=== PATIENT | female | born 1960 | race Caucasian/White ===

== ENCOUNTER 2016-11-10 05:21 | Emergency (ER) | payer OTHER, MEDICAID ==
[~2016-11-10] VITALS: Ht 172.7 cm; Wt 93.0 kg
[~2016-11-10 05:21] MED LIST: BUSP15TA3 PO; GABA-531 PO; INSU100V3; QUET50TA11 PO; TRAZ-132 PO; VENL150C2 PO
[2016-11-10] MEDS ORDERED: ACETAMINOPHEN 325MG TABLET PO STA (06:39)
[2016-11-10] MEDS ORDERED: SODIUM CHLORIDE 0.9% 1,000 ML IV ONE (06:39)
[2016-11-10] MEDS ORDERED: ONDANSETRON HCL 4MG/2ML VIAL IV ONE (06:45)
[2016-11-10 07:44] LABS: BASOPHILS % 0.2 % (0.0-2.0); HEMATOCRIT. 35.6 % (36.0-48.0); HEMOGLOBIN. 11.9 g/dL (12.0-16.0); LYMPHOCYTES % 8.3 % (20.0-50.0); MEAN CORPUSCULAR HEMOGLOBIN 29.4 pg (28.0-32.0); MEAN CORPUSCULAR VOLUME 88.1 fL (81.0-99.0); MEAN PLATELET VOLUME 9.2 fl (7.4-10.4); MONOCYTES % 6.8 % (2.0-8.0); NEUTROPHILS % 84.7 % (40.0-76.0); PLATELET 64 x1000/uL (130-400); RED BLOOD CELL COUNT 4.04 mill/uL (4.2-5.4); RED CELL DISTRIBUTION WIDTH 16.8 % (11.6-14.6)
[2016-11-10 07:45] LABS: CHLORIDE 102 mEq/L (98-107)
[2016-11-10 07:55] LABS: CARBON DIOXIDE 24 mEq/L (21-32)
[2016-11-10 08:49] LABS: GLUCOSE URINE 1+ (NEGATIVE); KETONES URINE TRACE (NEGATIVE); LEUKOCYTE ESTERASE URINE 3+ (NEGATIVE); NITRITE URINE POSITIVE (NEGATIVE); OCCULT BLOOD URINE 1+ (NEGATIVE); PH URINE 7.5 (4.5-8.0); PROTEIN URINE 1+ (NEGATIVE); SPECIFIC GRAVITY URINE 1.018 (1.005-1.030); UROBILINOGEN URINE >=8.0 E.U./dL (0.2-1.0)
[2016-11-10 08:53] LABS: CLARITY URINE CLOUDY (CLEAR); COLOR URINE YELLOW (YELLOW)
[2016-11-10] MEDS ORDERED: CEFTRIAXONE 1 G PREMIX 50 ML IV ONE (09:00)
[2016-11-10] MEDS ORDERED: KETOROLAC 30MG/ML VIAL IV ONE (09:45)
[2016-11-10 10:18] VITALS: BP 104/54
== END 2016-11-10 10:39 | disposition home or self-care (01) ==
LOC: ER 05:24
DX: N39.0 Urinary tract infection, site not specified (principal); E11.9 Type 2 diabetes mellitus without complications; F12.10 Cannabis abuse, uncomplicated; Z85.9 Personal history of malignant neoplasm, unspecified; Z90.5 Acquired absence of kidney; Z98.890 Other specified postprocedural states
CPT/HCPCS: 36415; 71010; 80053; 81001; 83605; 85025; 87040; 87077; 87086; 87186; 93005; 96361; 96365; 96375; 99285; J0696; J1885; J2405; J7030

== ENCOUNTER 2016-11-10 20:54 | Inpatient (IN) | payer OTHER, MEDICAID ==
[~2016-11-10] VITALS: Ht 170.2 cm; Wt 92.1 kg
[2016-11-10] MEDS ORDERED: SODIUM CHLORIDE 0.9% 1,000 ML IV ONE (21:33)
[2016-11-10] MEDS ORDERED: GENTAMICIN 80MG PREMIX 100 ML IV ONE (21:45)
[2016-11-10] MEDS ORDERED: PIPERACILLIN/TAZ 3.375G PREMIX 50 ML IV ONE (21:45)
[2016-11-10] MEDS ORDERED: VANCOMYCIN 1 G PREMIX 200 ML IV ONE (21:45)
[2016-11-10] MEDS ORDERED: IPRATROPIUM/ALBUTEROL 0.5-3(2.5)MG/3ML NEB INH PRN (22:15)
[2016-11-10] MEDS ORDERED: MAGNESIUM/ALUMINUM HYDROXIDE/SIMETHICONE 30ML UDC PO PRN (22:15)
[2016-11-10] MEDS ORDERED: DOCUSATE SODIUM 100MG CAPSULE PO PRN (22:15)
[2016-11-10] MEDS ORDERED: CLONIDINE 0.1MG TABLET PO PRN (22:15)
[2016-11-10] MEDS ORDERED: ONDANSETRON HCL 4MG/2ML VIAL IV PRN (22:15)
[2016-11-10] MEDS: ACETAMINOPHEN 325MG TABLET PO PRN (22:26)
[2016-11-10] MEDS: SODIUM CHLORIDE 0.9% 1,000 ML IV SCH (22:26)
[2016-11-10 22:39] LABS: CLARITY URINE TURBID (CLEAR); COLOR URINE DARK YELLOW (YELLOW); GLUCOSE URINE NEGATIVE (NEGATIVE); KETONES URINE NEGATIVE (NEGATIVE); LEUKOCYTE ESTERASE URINE 3+ (NEGATIVE); NITRITE URINE POSITIVE (NEGATIVE); OCCULT BLOOD URINE 2+ (NEGATIVE); PH URINE 5.5 (4.5-8.0); PROTEIN URINE 1+ (NEGATIVE)
[2016-11-10 22:49] LABS: BASOPHILS % 0.2 % (0.0-2.0); EOSINOPHILS % 0.2 % (0.0-5.0); HEMATOCRIT. 33.7 % (36.0-48.0); HEMOGLOBIN. 11.1 g/dL (12.0-16.0); LYMPHOCYTES % 11.7 % (20.0-50.0); MEAN CORPUSCULAR HEMOGLOBIN 29.1 pg (28.0-32.0); MEAN CORPUSCULAR VOLUME 88.4 fL (81.0-99.0); MEAN PLATELET VOLUME 9.2 fl (7.4-10.4); MONOCYTES % 9.1 % (2.0-8.0); NEUTROPHILS % 78.8 % (40.0-76.0); PLATELET 69 x1000/uL (130-400); RED BLOOD CELL COUNT 3.81 mill/uL (4.2-5.4); RED CELL DISTRIBUTION WIDTH 16.8 % (11.6-14.6)
[2016-11-10 22:51] LABS: *AMPHETAMINES SCREEN URINE NEGATIVE (NEGATIVE); *BARBITURATES SCREEN URINE NEGATIVE (NEGATIVE); *BENZODIAZEPINES SCREEN URINE NEGATIVE (NEGATIVE); *COCAINE SCREEN URINE NEGATIVE (NEGATIVE); CANNABINOID URINE SCREEN PRESUMTIVE POSITIVE (NEGATIVE); METHADONE URINE SCREEN NEGATIVE (NEGATIVE); OPIATES URINE SCREEN PRESUMTIVE POSITIVE (NEGATIVE); PHENCYCLIDINE URINE SCREEN NEGATIVE (NEGATIVE)
[2016-11-10 22:55] LABS: INR 1.2; PROTHROMBIN TIME 12.7 sec
[2016-11-10 22:56] LABS: CHLORIDE 104 mEq/L (98-107)
[2016-11-10 22:59] LABS: CARBON DIOXIDE 27 mEq/L (21-32)
[2016-11-10 23:04] LABS: TROPONIN I < 0.02 ng/mL (0.00-0.04)
[2016-11-11] MEDS: MORPHINE SULFATE 4 MG/ML CPJ (NOT FOR IM USE) IV ONE ×2 (00:56→01:17)
[2016-11-11] MEDS: ONDANSETRON HCL 4MG/2ML VIAL IV ONE ×2 (00:56→01:17)
[2016-11-11 01:30] VITALS: BP 149/81
[2016-11-11] MEDS ORDERED: DEXTROSE 50% WATER 50ML SYRINGE IV PRN (02:45)
[2016-11-11 04:00] VITALS: BP 101/63
[2016-11-11] MEDS: ACETAMINOPHEN 325MG TABLET PO PRN ×3 (04:33→21:24)
[2016-11-11 06:00] LABS: BASOPHILS % 0.2 % (0.0-2.0); EOSINOPHILS % 0.2 % (0.0-5.0); HEMATOCRIT. 31.5 % (36.0-48.0); HEMOGLOBIN. 10.5 g/dL (12.0-16.0); LYMPHOCYTES % 7.2 % (20.0-50.0); MEAN CORPUSCULAR HEMOGLOBIN 29.5 pg (28.0-32.0); MEAN CORPUSCULAR VOLUME 88.9 fL (81.0-99.0); MEAN PLATELET VOLUME 9.7 fl (7.4-10.4); MONOCYTES % 7.2 % (2.0-8.0); NEUTROPHILS % 85.2 % (40.0-76.0); PLATELET 58 x1000/uL (130-400); RED BLOOD CELL COUNT 3.54 mill/uL (4.2-5.4); RED CELL DISTRIBUTION WIDTH 16.2 % (11.6-14.6)
[2016-11-11] MEDS: BLOOD SUGAR DIAGNOSTIC STRIP TEST SCH ×4 (06:38→23:21)
[2016-11-11 06:50] LABS: CREATINE KINASE 49 IU/L (26-192); CREATINE KINASE MB FRACTION < 0.5 ng/mL (0.5-3.6); HDL CHOLESTEROL 24 mg/dL (40-59); LDL CHOLESTEROL 60 mg/dL (5-100)
[2016-11-11] MEDS ORDERED: PIPERACILLIN/TAZ 3.375G PREMIX 50 ML IV SCH (07:00)
[2016-11-11 08:00] VITALS: BP 116/74
[2016-11-11] MEDS: GABAPENTIN 300MG CAPSULE PO SCH ×3 (09:05→17:48)
[2016-11-11] MEDS: INSULIN LISPRO 100 UNITS/ML SUBCUT SCH ×4 (09:07→23:19)
[2016-11-11] MEDS: SODIUM CHLORIDE 0.9% 1,000 ML IV SCH ×2 (10:23→23:29)
[2016-11-11 12:00] VITALS: BP 114/76
[2016-11-11 15:16] LABS: CREATINE KINASE MB FRACTION 0.6 ng/mL (0.5-3.6)
[2016-11-11] MEDS: HYDROCODONE/ACETAMINOPHEN 5/325MG TABLET PO PRN ×2 (15:31→23:29)
[2016-11-11 16:00] VITALS: BP 122/78
[2016-11-11] MEDS ORDERED: VANCOMYCIN 1500MG in DEXTROSE 5% WATER 250ML IV SCH (18:00)
[2016-11-11] MEDS: PIPERACILLIN/TAZ 3.375G PREMIX 50 ML IV SCH (19:29)
[2016-11-11 20:00] VITALS: BP 124/69
[2016-11-11] MEDS: VENLAFAXINE HCL 37.5MG SR CAPSULE 24HR PO SCH (21:25)
[2016-11-11] MEDS: KETOROLAC 30MG/ML VIAL IV PRN (23:16)
[2016-11-11] MEDS: TRAZODONE HCL 100MG TABLET PO SCH (23:21)
[2016-11-12] VITALS: BP 94/42
[2016-11-12] MEDS: PIPERACILLIN/TAZ 3.375G PREMIX 50 ML IV SCH ×2 (00:17→06:39)
[2016-11-12 04:00] VITALS: BP 114/65
[2016-11-12] MEDS: BLOOD SUGAR DIAGNOSTIC STRIP TEST SCH ×3 (07:40→17:20)
[2016-11-12] MEDS: GABAPENTIN 300MG CAPSULE PO SCH ×3 (08:32→16:46)
[2016-11-12] MEDS: VENLAFAXINE HCL 37.5MG SR CAPSULE 24HR PO SCH (08:33)
[2016-11-12] MEDS: INSULIN LISPRO 100 UNITS/ML SUBCUT SCH ×3 (08:35→17:56)
[2016-11-12] MEDS: KETOROLAC 30MG/ML VIAL IV PRN ×2 (09:20→20:51)
[2016-11-12 12:00] VITALS: BP 104/50
[2016-11-12] MEDS: SODIUM CHLORIDE 0.9% 1,000 ML IV SCH (12:45)
[2016-11-12] MEDS: CEFAZOLIN 2,000 MG in DEXT 5% WATER 100 ML IV SCH (15:10)
[2016-11-12 15:59] VITALS: BP 123/35
[2016-11-12] MEDS: HYDROCODONE/ACETAMINOPHEN 5/325MG TABLET PO PRN (18:42)
[2016-11-12 20:00] VITALS: BP 136/65
[2016-11-12] MEDS: ACETAMINOPHEN 325MG TABLET PO PRN (20:50)
[2016-11-12] MEDS: TRAZODONE HCL 100MG TABLET PO SCH (20:50)
[2016-11-13] VITALS: BP 118/80
[2016-11-13] MEDS: SODIUM CHLORIDE 0.9% 1,000 ML IV SCH ×2 (00:14→12:08)
[2016-11-13] MEDS: CEFAZOLIN 2,000 MG in DEXT 5% WATER 100 ML IV SCH ×4 (00:23→21:10)
[2016-11-13] MEDS: INSULIN LISPRO 100 UNITS/ML SUBCUT SCH ×5 (00:24→21:54)
[2016-11-13] MEDS: BLOOD SUGAR DIAGNOSTIC STRIP TEST SCH ×5 (00:26→21:10)
[2016-11-13 04:00] VITALS: BP 143/67
[2016-11-13 04:11] LABS: CARBON DIOXIDE 26 mEq/L (21-32); CHLORIDE 107 mEq/L (98-107); VANCOMYCIN TROUGH 11.3 ug/mL (5.0-10.0)
[2016-11-13] MEDS: HYDROCODONE/ACETAMINOPHEN 5/325MG TABLET PO PRN ×2 (06:38→18:08)
[2016-11-13 08:00] VITALS: BP 143/70
[2016-11-13] MEDS: VENLAFAXINE HCL 37.5MG SR CAPSULE 24HR PO SCH (08:18)
[2016-11-13] MEDS: GABAPENTIN 300MG CAPSULE PO SCH ×3 (08:19→17:06)
[2016-11-13] MEDS: KETOROLAC 30MG/ML VIAL IV PRN (08:46)
[2016-11-13] MEDS ORDERED: LIDOCAINE HCL 1% 20ML VIAL (Pyxis) INJ ONE (08:50)
[2016-11-13] MEDS ORDERED: SODIUM BICARBONATE 4% (2.4MEQ) 5ML VIAL IV ONE (08:50)
[2016-11-13 12:00] VITALS: BP 126/66
[2016-11-13 16:00] VITALS: BP 134/80
[2016-11-13 20:00] VITALS: BP 133/64
[2016-11-13] MEDS: TRAZODONE HCL 100MG TABLET PO SCH (21:02)
[2016-11-14] VITALS: BP 132/60
[2016-11-14] MEDS: SODIUM CHLORIDE 0.9% 1,000 ML IV SCH ×2 (01:44→13:35)
[2016-11-14 04:00] VITALS: BP 144/52
[2016-11-14] MEDS: KETOROLAC 30MG/ML VIAL IV PRN (04:20)
[2016-11-14] MEDS: CEFAZOLIN 2,000 MG in DEXT 5% WATER 100 ML IV SCH ×2 (06:10→13:28)
[2016-11-14] MEDS: BLOOD SUGAR DIAGNOSTIC STRIP TEST SCH ×2 (06:12→12:40)
[2016-11-14 08:00] VITALS: BP 149/91
[2016-11-14] MEDS: GABAPENTIN 300MG CAPSULE PO SCH ×2 (08:48→13:30)
[2016-11-14] MEDS: VENLAFAXINE HCL 37.5MG SR CAPSULE 24HR PO SCH (08:48)
[2016-11-14] MEDS: INSULIN LISPRO 100 UNITS/ML SUBCUT SCH ×2 (09:05→13:28)
[2016-11-14 12:00] VITALS: BP 157/87
[2016-11-14 14:47] VITALS: BP 157/87
== END 2016-11-14 14:50 | disposition home health service (06) | DRG 872 ==
LOC: EDBEDREQSVC 21:53 → EDBEDREQ 21:53 → EDBEDREQTM 21:53 → ER 23:16 → ENRESERV 23:57 → 7WST 11-11 01:49
PROVIDERS: ADMIT Internal Medicine; ATTEND Internal Medicine
PROC: 02HV33Z Insertion of Infusion Device into Superior Vena Cava, Percutaneous Approach (ICD-10-PCS; principal; 2016-11-13)
PROC: B5181ZA Fluoroscopy of Superior Vena Cava using Low Osmolar Contrast, Guidance (ICD-10-PCS; 2016-11-13)
PROC: B548ZZA Ultrasonography of Superior Vena Cava, Guidance (ICD-10-PCS; 2016-11-13)
DX: A41.9 Sepsis, unspecified organism (principal); N39.0 Urinary tract infection, site not specified; E87.6 Hypokalemia; D64.9 Anemia, unspecified; B96.20 Unspecified Escherichia coli [E. coli] as the cause of diseases classified elsewhere; E11.9 Type 2 diabetes mellitus without complications; F17.210 Nicotine dependence, cigarettes, uncomplicated; Z60.2 Problems related to living alone; Z82.49 Family history of ischemic heart disease and other diseases of the circulatory system; Z85.528 Personal history of other malignant neoplasm of kidney; Z88.1 Allergy status to other antibiotic agents; Z79.4 Long term (current) use of insulin; Z79.899 Other long term (current) drug therapy; Z98.891 History of uterine scar from previous surgery; Z71.6 Tobacco abuse counseling
CPT/HCPCS: 36415; 36569; 71010; 76937; 77001; 80048; 80053; 80061; 80202; 80305; 81001; 82550; 82553; 82962; 83605; 83735; 84443; 84484; 85025; 85610; 87040; 87086; 93005; 93970; 96365; 96366; 96367; 96375; 99285; 99406; C1725; J0690; J1580; J1815; J1885; J2270; J2405; J2543; J3370; J3490; J7030; J7050; J7060

== ENCOUNTER 2017-03-18 16:00 | Emergency (ER) | payer OTHER, MEDICAID ==
[~2017-03-18] VITALS: Ht 172.7 cm; Wt 91.0 kg
[~2017-03-18 16:00] MED LIST changes: +QUET50TA PO; -QUET50TA11 PO
[2017-03-18 16:19] VITALS: BP 147/74
[2017-03-18] MEDS ORDERED: DEXAMETHASONE 10 MG/ML VIAL IM ONE (18:45)
[2017-03-18] MEDS ORDERED: DIPHENHYDRAMINE 50MG CAPSULE PO ONE (19:30)
== END 2017-03-18 19:55 | disposition home or self-care (01) ==
LOC: ER 16:00
DX: T78.40XA Allergy, unspecified, initial encounter (principal); X58.XXXA Exposure to other specified factors, initial encounter; R03.0 Elevated blood-pressure reading, without diagnosis of hypertension; E11.9 Type 2 diabetes mellitus without complications; Z85.9 Personal history of malignant neoplasm, unspecified; Z98.890 Other specified postprocedural states; Z90.89 Acquired absence of other organs; F17.210 Nicotine dependence, cigarettes, uncomplicated; F12.90 Cannabis use, unspecified, uncomplicated; Z79.4 Long term (current) use of insulin; Z79.899 Other long term (current) drug therapy
CPT/HCPCS: 96372; 99283; J1100; Q0163

== ENCOUNTER 2017-06-17 07:33 | Emergency (ER) | payer OTHER, MEDICAID ==
[~2017-06-17] VITALS: Ht 170.2 cm; Wt 75.0 kg
[2017-06-17 10:40] VITALS: BP 124/60
== END 2017-06-17 13:04 | disposition left against medical advice (07) ==
LOC: ER 07:33
DX: S90.821A Blister (nonthermal), right foot, initial encounter (principal); M79.671 Pain in right foot; E11.9 Type 2 diabetes mellitus without complications; X58.XXXA Exposure to other specified factors, initial encounter; Y93.89 Activity, other specified; Y92.89 Other specified places as the place of occurrence of the external cause
CPT/HCPCS: 82962; 99282

== ENCOUNTER 2018-03-10 14:51 | Emergency (ER) | payer OTHER, MEDICAID ==
[~2018-03-10] VITALS: Ht 170.2 cm; Wt 73.0 kg
[~2018-03-10 14:51] MED LIST changes: -TRAZ-132 PO; +TRAZ-213 PO
[2018-03-10] MEDS ORDERED: KETOROLAC 60MG/2ML VIAL IM STA (16:12)
[2018-03-10] MEDS ORDERED: MELOXICAM 7.5MG TABLET PO ONE (17:30)
[2018-03-10 17:49] VITALS: BP 137/62
== END 2018-03-10 17:48 | disposition home or self-care (01) ==
LOC: ER 14:51
DX: S20.212A Contusion of left front wall of thorax, initial encounter (principal); S20.211A Contusion of right front wall of thorax, initial encounter; F17.200 Nicotine dependence, unspecified, uncomplicated; F12.10 Cannabis abuse, uncomplicated; E11.9 Type 2 diabetes mellitus without complications; X58.XXXA Exposure to other specified factors, initial encounter; Y93.89 Activity, other specified; Y92.89 Other specified places as the place of occurrence of the external cause; Y99.8 Other external cause status; Z90.49 Acquired absence of other specified parts of digestive tract; Z98.890 Other specified postprocedural states; Z79.4 Long term (current) use of insulin; Z79.899 Other long term (current) drug therapy; Z88.1 Allergy status to other antibiotic agents
CPT/HCPCS: 71045; 93005; 96372; 99283; 99406; J1885

== ENCOUNTER 2019-06-01 15:02 | Emergency (ER) | payer OTHER, MEDICAID ==
[~2019-06-01] VITALS: Ht 167.6 cm; Wt 90.0 kg
[~2019-06-01 15:02] MED LIST changes: -TRAZ-213 PO; +TRAZ-252 PO
[2019-06-01 15:12] VITALS: BP 170/60
== END 2019-06-01 19:50 | disposition left against medical advice (07) ==
LOC: ER 15:02
DX: M54.9 Dorsalgia, unspecified (principal); Z53.21 Procedure and treatment not carried out due to patient leaving prior to being seen by health care provider

== ENCOUNTER 2019-09-22 10:58 | Emergency (ER) | payer OTHER, MEDICAID ==
[~2019-09-22] VITALS: Ht 170.2 cm; Wt 70.0 kg
[2019-09-22 11:59] VITALS: BP 130/78
[2019-09-22] MEDS ORDERED: BACITRACIN ZINC OINT UDPKT TOP ONE (12:00)
[2019-09-22 12:45] LABS: BASOPHILS % 0.5 % (0.0-2.0); EOSINOPHILS % 1.8 % (0.0-5.0); HEMOGLOBIN. 11.8 g/dL (12.0-16.0); LYMPHOCYTES % 20.4 % (20.0-50.0); MEAN CORPUSCULAR HEMOGLOBIN 32.4 pg (28.0-32.0); MEAN CORPUSCULAR VOLUME 95.9 fL (81.0-99.0); MEAN PLATELET VOLUME 10.3 fl (7.4-10.4); MONOCYTES % 5.7 % (2.0-8.0); NEUTROPHILS % 71.6 % (40.0-76.0); PLATELET 73 x1000/uL (130-400); RED BLOOD CELL COUNT 3.65 mill/uL (4.2-5.4); RED CELL DISTRIBUTION WIDTH 18.1 % (11.6-14.6)
[2019-09-22 12:48] LABS: CHLORIDE 108 mEq/L (98-107)
== END 2019-09-22 13:54 | disposition home or self-care (01) ==
LOC: ER 10:58
DX: G62.9 Polyneuropathy, unspecified (principal); S90.424A Blister (nonthermal), right lesser toe(s), initial encounter; W26.8XXA Contact with other sharp object(s), not elsewhere classified, initial encounter; Y93.89 Activity, other specified; R03.0 Elevated blood-pressure reading, without diagnosis of hypertension; D61.818 Other pancytopenia; E11.9 Type 2 diabetes mellitus without complications; Y92.89 Other specified places as the place of occurrence of the external cause
CPT/HCPCS: 36415; 80053; 85025; 99283

== ENCOUNTER 2019-10-03 19:02 | Emergency (ER) | payer OTHER, MEDICAID ==
[~2019-10-03] VITALS: Ht 170.2 cm; Wt 77.0 kg
[2019-10-03 19:13] VITALS: BP 130/82
[2019-10-03] MEDS ORDERED: ACETAMINOPHEN 500MG TABLET PO ONE (20:30)
[2019-10-03] MEDS ORDERED: IBUPROFEN 800MG TABLET PO ONE (20:30)
== END 2019-10-03 22:16 | disposition home or self-care (01) ==
LOC: ER 19:02
DX: S93.691A Other sprain of right foot, initial encounter (principal); M79.671 Pain in right foot; X58.XXXA Exposure to other specified factors, initial encounter; Y93.89 Activity, other specified; Y92.89 Other specified places as the place of occurrence of the external cause; Y99.8 Other external cause status; E11.9 Type 2 diabetes mellitus without complications; M77.9 Enthesopathy, unspecified; Z88.1 Allergy status to other antibiotic agents
CPT/HCPCS: 73630; 99283

== ENCOUNTER 2019-10-15 22:14 | Emergency (ER) | payer OTHER, MEDICAID ==
[~2019-10-15] VITALS: Ht 170.2 cm; Wt 77.0 kg
[2019-10-15 22:53] VITALS: BP 102/54
[2019-10-15] MEDS ORDERED: DEXAMETHASONE 4MG TABLET PO ONE (23:45)
== END 2019-10-15 23:44 | disposition home or self-care (01) ==
LOC: ER 22:14
DX: H66.92 Otitis media, unspecified, left ear (principal); J32.9 Chronic sinusitis, unspecified; Z88.1 Allergy status to other antibiotic agents
CPT/HCPCS: 99283; J8540

== ENCOUNTER 2020-01-30 09:24 | Emergency (ER) | payer OTHER, MEDICAID ==
[~2020-01-30] VITALS: Ht 170.2 cm; Wt 68.0 kg
[2020-01-30] MEDS ORDERED: KETOROLAC 30MG/ML VIAL IM ONE (09:45)
[2020-01-30 09:55] VITALS: BP 111/67
== END 2020-01-30 11:23 | disposition home or self-care (01) ==
LOC: ER 09:24
DX: M17.11 Unilateral primary osteoarthritis, right knee (principal); F32.9 Major depressive disorder, single episode, unspecified; E11.9 Type 2 diabetes mellitus without complications; Z98.890 Other specified postprocedural states; Z85.9 Personal history of malignant neoplasm, unspecified; Z79.4 Long term (current) use of insulin; Z79.899 Other long term (current) drug therapy; Z88.1 Allergy status to other antibiotic agents
CPT/HCPCS: 73562; 96372; 99283; J1885

== ENCOUNTER 2021-06-13 17:02 | Emergency (ER) | payer OTHER, MEDICAID ==
[~2021-06-13] VITALS: Ht 165.1 cm; Wt 80.0 kg
[~2021-06-13 17:02] MED LIST changes: -GABA-531 PO; +GABA-532 PO
[2021-06-13] MEDS ORDERED: ONDANSETRON HCL 4MG/2ML INJ IV STA (17:04)
[2021-06-13] MEDS ORDERED: SODIUM CHLORIDE 0.9% 1,000 ML IV ONE (17:15)
[2021-06-13] MEDS ORDERED: ACTIVATED CHARCOAL 50 G/240 ML TUBE PO NR (17:45)
[2021-06-13 18:04] LABS: CLARITY URINE CLEAR (CLEAR); COLOR URINE YELLOW (YELLOW); KETONES URINE NEGATIVE (NEGATIVE); LEUKOCYTE ESTERASE URINE TRACE (NEGATIVE); NITRITE URINE NEGATIVE (NEGATIVE); OCCULT BLOOD URINE NEGATIVE (NEGATIVE); PROTEIN URINE TRACE (NEGATIVE); SPECIFIC GRAVITY URINE 1.013 (1.005-1.030)
[2021-06-13 18:12] LABS: BASOPHILS % 0.4 % (0.0-2.0); EOSINOPHILS % 1.1 % (0.0-5.0); HEMATOCRIT. 34.1 % (36.0-48.0); HEMOGLOBIN. 11.8 g/dL (12.0-16.0); LYMPHOCYTES % 25.3 % (20.0-50.0); MEAN CORPUSCULAR VOLUME 92.7 fL (81.0-99.0); MONOCYTES % 6.5 % (2.0-8.0); NEUTROPHILS % 66.7 % (40.0-76.0); PLATELET 51 x1000/uL (130-400); RED BLOOD CELL COUNT 3.67 mill/uL (4.2-5.4); RED CELL DISTRIBUTION WIDTH 15.2 % (11.6-14.6)
[2021-06-13 18:19] LABS: CHLORIDE 107 mEq/L (98-107)
[2021-06-13 18:22] LABS: HCG SCREEN NEGATIVE
[2021-06-13 18:27] LABS: ETHANOL BLOOD < 10 mg/dL
[2021-06-13 18:29] LABS: *AMPHETAMINES SCREEN URINE NEGATIVE (NEGATIVE); *BARBITURATES SCREEN URINE NEGATIVE (NEGATIVE); *BENZODIAZEPINES SCREEN URINE NEGATIVE (NEGATIVE); *COCAINE SCREEN URINE NEGATIVE (NEGATIVE); METHADONE URINE SCREEN NEGATIVE (NEGATIVE)
[2021-06-13 18:30] LABS: CANNABINOID URINE SCREEN PRESUMTIVE POSITIVE (NEGATIVE); OPIATES URINE SCREEN NEGATIVE (NEGATIVE); PHENCYCLIDINE URINE SCREEN NEGATIVE (NEGATIVE)
[2021-06-13] MEDS ORDERED: POTASSIUM CHLORIDE 20MEQ TABLET SR PO ONE (18:30)
[2021-06-13] MEDS ORDERED: *PATIENT'S OWN MEDICATION STORAGE XX SCH (20:30)
[2021-06-14] MEDS ORDERED: LORAZEPAM 0.5MG TABLET PO ONE (15:45)
[2021-06-14] MEDS ORDERED: LORAZEPAM 2MG/ML CPJ IM ONE (17:45)
[2021-06-15 06:09] LABS: CHLORIDE 109 mEq/L (98-107)
[2021-06-15] MEDS ORDERED: LORAZEPAM 1MG TABLET PO ONE (08:00)
[2021-06-15] MEDS ORDERED: NICOTINE 7MG PATCH TD ONE (10:45)
[2021-06-15] MEDS: BUSPIRONE HCL 5MG TABLET PO SCH ×3 (11:00→23:55)
[2021-06-15] MEDS: VENLAFAXINE HCL 37.5MG SR CAPSULE 24HR PO SCH (11:01)
[2021-06-16] MEDS: BUSPIRONE HCL 5MG TABLET PO SCH ×3 (06:35→22:36)
[2021-06-16] MEDS: VENLAFAXINE HCL 37.5MG SR CAPSULE 24HR PO SCH (06:36)
[2021-06-16] MEDS ORDERED: TRAZODONE HCL 50MG TABLET PO SCH (21:00)
[2021-06-17] MEDS ORDERED: LORAZEPAM 1MG TABLET PO ONE (01:00)
[2021-06-17] MEDS ORDERED: ACETAMINOPHEN WITH CODEINE 300/30MG TABLET PO ONE (01:00)
[2021-06-17] MEDS ORDERED: VENLAFAXINE HCL 37.5MG SR CAPSULE 24HR PO ONE (01:00)
[2021-06-17 06:00] VITALS: BP 135/67
[2021-06-17] MEDS: BUSPIRONE HCL 5MG TABLET PO SCH (06:07)
== END 2021-06-17 07:35 ==
LOC: ER 17:02
DX: T43.212A Poisoning by selective serotonin and norepinephrine reuptake inhibitors, intentional self-harm, initial encounter (principal); F33.9 Major depressive disorder, recurrent, unspecified; F16.10 Hallucinogen abuse, uncomplicated; F12.90 Cannabis use, unspecified, uncomplicated; E87.6 Hypokalemia; D75.839 Thrombocytosis, unspecified; R03.0 Elevated blood-pressure reading, without diagnosis of hypertension; E11.9 Type 2 diabetes mellitus without complications; Z20.822 Contact with and (suspected) exposure to COVID-19; Z63.79 Other stressful life events affecting family and household; Z85.9 Personal history of malignant neoplasm, unspecified; Y92.89 Other specified places as the place of occurrence of the external cause; Z79.4 Long term (current) use of insulin; Z75.1 Person awaiting admission to adequate facility elsewhere
CPT/HCPCS: 36415; 80053; 80305; 80307; 80320; 80329; 81003; 84703; 85025; 93005; 96361; 96374; 99285; J2060; J2405; J7030; U0003; G0480

== ENCOUNTER 2021-11-07 11:28 | Emergency (ER) | payer OTHER, MEDICAID ==
[~2021-11-07] VITALS: Ht 162.6 cm; Wt 73.0 kg
[~2021-11-07 11:28] MED LIST changes: -VENL150C2 PO; +VENL150C4 PO
[2021-11-07] MEDS ORDERED: LEVETIRACETAM 500MG PREMIX 100 ML IV ONE (11:45)
[2021-11-07 11:56] VITALS: BP 139/71
[2021-11-07 12:04] LABS: BASOPHILS % 0.5 % (0.0-2.0); EOSINOPHILS % 0.7 % (0.0-5.0); HEMATOCRIT. 39.1 % (36.0-48.0); HEMOGLOBIN. 13.2 g/dL (12.0-16.0); LYMPHOCYTES % 22.4 % (20.0-50.0); MEAN CORPUSCULAR HEMOGLOBIN 30.9 pg (28.0-32.0); MEAN CORPUSCULAR VOLUME 91.8 fL (81.0-99.0); MEAN PLATELET VOLUME 9.8 fl (7.4-10.4); MONOCYTES % 5.5 % (2.0-8.0); NEUTROPHILS % 70.9 % (40.0-76.0); PLATELET 67 x1000/uL (130-400); RED BLOOD CELL COUNT 4.26 mill/uL (4.2-5.4); RED CELL DISTRIBUTION WIDTH 15.4 % (11.6-14.6)
[2021-11-07 12:13] LABS: CHLORIDE 106 mEq/L (98-107)
[2021-11-07] MEDS ORDERED: SODIUM CHLORIDE 0.9% 1,000 ML IV ONE (12:15)
== END 2021-11-07 13:46 | disposition left against medical advice (07) ==
LOC: ER 11:40
DX: G40.909 Epilepsy, unspecified, not intractable, without status epilepticus (principal); E87.6 Hypokalemia; R03.0 Elevated blood-pressure reading, without diagnosis of hypertension; Z85.528 Personal history of other malignant neoplasm of kidney; D69.6 Thrombocytopenia, unspecified; E11.9 Type 2 diabetes mellitus without complications; Z90.5 Acquired absence of kidney; Z79.4 Long term (current) use of insulin; Z79.899 Other long term (current) drug therapy; Z86.59 Personal history of other mental and behavioral disorders
CPT/HCPCS: 36415; 80053; 85025; 93005; 96365; 99284; J1953; J7030

== ENCOUNTER 2022-06-26 11:35 | Emergency (ER) | payer OTHER, MEDICAID ==
[~2022-06-26] VITALS: Ht 170.2 cm; Wt 91.0 kg
[2022-06-26] MEDS ORDERED: SODIUM CHLORIDE 0.9% 1,000 ML IV ONE (12:00)
[2022-06-26 12:58] LABS: BASOPHILS % 0.6 % (0.0-2.0); EOSINOPHILS % 1.4 % (0.0-5.0); HEMATOCRIT. 35.8 % (36.0-48.0); HEMOGLOBIN. 11.9 g/dL (12.0-16.0); LYMPHOCYTES % 23.4 % (20.0-50.0); MEAN CORPUSCULAR VOLUME 93.2 fL (81.0-99.0); MEAN PLATELET VOLUME 10.4 fl (7.4-10.4); NEUTROPHILS % 67.6 % (40.0-76.0); RED BLOOD CELL COUNT 3.85 mill/uL (4.2-5.4); RED CELL DISTRIBUTION WIDTH 16.2 % (11.6-14.6)
[2022-06-26 13:10] LABS: CHLORIDE 102 mEq/L (98-107)
[2022-06-26 13:12] LABS: INR 1.2; PROTHROMBIN TIME 12.4 sec (9.6-11.0)
[2022-06-26 13:20] LABS: ETHANOL BLOOD < 10 mg/dL
[2022-06-26 13:31] LABS: COLOR URINE YELLOW (YELLOW)
[2022-06-26 13:32] LABS: CLARITY URINE CLOUDY (CLEAR); KETONES URINE NEGATIVE (NEGATIVE); NITRITE URINE NEGATIVE (NEGATIVE); OCCULT BLOOD URINE TRACE (NEGATIVE); PH URINE 6.5 (4.5-8.0); PROTEIN URINE NEGATIVE (NEGATIVE); SPECIFIC GRAVITY URINE 1.017 (1.005-1.030)
[2022-06-26 13:33] LABS: LEUKOCYTE ESTERASE URINE 3+ (NEGATIVE)
[2022-06-26 13:39] LABS: PLATELET 50 x1000/uL (130-400)
[2022-06-26] MEDS ORDERED: CEFTRIAXONE 1 G PREMIX 50 ML IV ONE (14:00)
[2022-06-26 14:30] VITALS: BP 132/66
[2022-06-26] MEDS ORDERED: CEPH500C2 MT (14:46)
== END 2022-06-26 15:15 | disposition home or self-care (01) ==
LOC: ER 12:17
DX: G40.909 Epilepsy, unspecified, not intractable, without status epilepticus (principal); E11.65 Type 2 diabetes mellitus with hyperglycemia; D61.818 Other pancytopenia; N39.0 Urinary tract infection, site not specified; Z85.9 Personal history of malignant neoplasm, unspecified; Z79.4 Long term (current) use of insulin; Z79.899 Other long term (current) drug therapy
CPT/HCPCS: 36415; 71045; 80053; 80320; 81003; 82962; 84484; 85025; 85610; 87086; 93005; 96360; 99285; J0696; J7030; G0480

== ENCOUNTER 2022-08-19 01:33 | Emergency (ER) | payer OTHER, MEDICAID ==
[~2022-08-19] VITALS: Ht 170.2 cm; Wt 75.0 kg
[~2022-08-19 01:33] MED LIST changes: +CEPH500C2 MT
[2022-08-19] MEDS ORDERED: SODIUM CHLORIDE 0.9% 1,000 ML IV NR (02:00)
[2022-08-19 02:44] LABS: BASOPHILS % 0.4 % (0.0-2.0); EOSINOPHILS % 1.4 % (0.0-5.0); HEMATOCRIT. 34.4 % (36.0-48.0); HEMOGLOBIN. 11.7 g/dL (12.0-16.0); LYMPHOCYTES % 15.9 % (20.0-50.0); MEAN CORPUSCULAR HEMOGLOBIN 31.8 pg (28.0-32.0); MEAN CORPUSCULAR VOLUME 93.2 fL (81.0-99.0); MEAN PLATELET VOLUME 10.5 fl (7.4-10.4); MONOCYTES % 5.5 % (2.0-8.0); NEUTROPHILS % 76.8 % (40.0-76.0); PLATELET 55 x1000/uL (130-400); RED BLOOD CELL COUNT 3.69 mill/uL (4.2-5.4); RED CELL DISTRIBUTION WIDTH 15.1 % (11.6-14.6)
[2022-08-19 02:53] LABS: CHLORIDE 99 mEq/L (98-107)
[2022-08-19 03:13] LABS: CLARITY URINE CLOUDY (CLEAR); COLOR URINE YELLOW (YELLOW); KETONES URINE NEGATIVE (NEGATIVE); LEUKOCYTE ESTERASE URINE 1+ (NEGATIVE); NITRITE URINE NEGATIVE (NEGATIVE); OCCULT BLOOD URINE TRACE (NEGATIVE); PROTEIN URINE NEGATIVE (NEGATIVE)
[2022-08-19] MEDS ORDERED: LEVETIRACETAM 500MG PREMIX 100 ML IV NR (03:45)
[2022-08-19] MEDS ORDERED: INSULIN REGULAR (HUMULIN R) 300UNITS/3ML VIAL IV NR (04:00)
[2022-08-19] MEDS ORDERED: CEFTRIAXONE 1GM PREMIX 50 ML IV NR (05:00)
[2022-08-19] MEDS ORDERED: KETOROLAC 30MG/ML VIAL IV STA (05:03)
[2022-08-19 05:56] VITALS: BP 121/57
== END 2022-08-19 06:22 | disposition home or self-care (01) ==
LOC: ER 02:00
DX: R56.9 Unspecified convulsions (principal); F32.9 Major depressive disorder, single episode, unspecified; E11.9 Type 2 diabetes mellitus without complications; Z79.899 Other long term (current) drug therapy; Z85.9 Personal history of malignant neoplasm, unspecified
CPT/HCPCS: 36415; 70450; 71045; 74176; 80053; 81003; 82962; 85025; 93005; 96361; 96374; 96375; 99285; J1815; J1885; J1953

== ENCOUNTER 2022-08-25 11:06 | Emergency (ER) | payer OTHER, MEDICAID ==
[~2022-08-25] VITALS: Ht 170.2 cm; Wt 91.0 kg
[2022-08-25 11:20] VITALS: BP 164/57
== END 2022-08-25 13:41 | disposition left against medical advice (07) ==
LOC: ER 13:09
DX: M54.9 Dorsalgia, unspecified (principal); Z53.21 Procedure and treatment not carried out due to patient leaving prior to being seen by health care provider
CPT/HCPCS: 99281

== ENCOUNTER 2022-11-22 10:25 | Emergency (ER) | payer OTHER, MEDICAID ==
[~2022-11-22] VITALS: Ht 172.7 cm; Wt 77.0 kg
[2022-11-22 10:32] VITALS: BP 138/70; PULSE 86; RESP 18; TEMP 97.9; O2SAT 96
[2022-11-22] MEDS ORDERED: DIPHENHYDRAMINE 25MG CAPSULE PO ONE (11:30)
[2022-11-22] MEDS ORDERED: HYDR30OI12 TP (12:32)
[2022-11-22] MEDS ORDERED: CETI10CA11 MT (12:32)
[2022-11-22] MEDS ORDERED: DOCU-150 MT (12:32)
[2022-11-22] MEDS ORDERED: BO1 TP (12:32)
[2022-11-22 12:58] LABS: CLARITY URINE CLOUDY (CLEAR); COLOR URINE YELLOW (YELLOW); GLUCOSE URINE 3+ (NEGATIVE); KETONES URINE NEGATIVE (NEGATIVE); LEUKOCYTE ESTERASE URINE 1+ (NEGATIVE); NITRITE URINE NEGATIVE (NEGATIVE); OCCULT BLOOD URINE TRACE (NEGATIVE); PH URINE 5.5 (4.5-8.0); PROTEIN URINE NEGATIVE (NEGATIVE); SPECIFIC GRAVITY URINE 1.031 (1.005-1.030)
[2022-11-22 13:29] LABS: SQUAMOUS EPITHELIAL CELL URINE FEW /lpf (RARE/1+)
[2022-11-22 13:30] LABS: RBC URINE 0-2 /hpf (0-2); WBC URINE 25-50 /hpf (0-2)
[2022-11-22 13:31] LABS: BACTERIA URINE 3+
[2022-11-22] MEDS ORDERED: CEPH500C2 MT (13:56)
== END 2022-11-22 14:11 | disposition home or self-care (01) ==
LOC: ER 10:25
DX: N39.0 Urinary tract infection, site not specified (principal); R81 Glycosuria; K60.2 Anal fissure, unspecified; N95.2 Postmenopausal atrophic vaginitis; F32.9 Major depressive disorder, single episode, unspecified; E11.9 Type 2 diabetes mellitus without complications; Z79.899 Other long term (current) drug therapy
CPT/HCPCS: 99283; 81003; 87086; 87186; 87210; 87077; Q0163

== ENCOUNTER 2023-08-02 01:14 | Emergency (ER) | payer MEDICARE, MEDICAID ==
[~2023-08-02] VITALS: Ht 165.1 cm; Wt 50.0 kg
[~2023-08-02 01:14] MED LIST changes: +ARIP10TA56 MT; +BO1 TP; -CEPH500C2 MT; +CETI10CA11 MT; +CIPR-263 MT; +DOCU-150 MT; +EFXR15 PO; +HYDR30OI12 TP; +KEPP500 PO; +METF-414 MT; +POTA-204 MT; -VENL150C4 PO
[2023-08-02 01:18] VITALS: O2SAT 99
[2023-08-02] MEDS: LEVETIRACETAM 1000MG PREMIX 100 ML IV ONE (01:45)
[2023-08-02 02:02] LABS: BASOPHILS % 0.3 % (0.0-2.0); EOSINOPHILS % 2.6 % (0.0-5.0); HEMATOCRIT. 33.3 % (36.0-48.0); HEMOGLOBIN. 11.4 g/dL (12.0-16.0); LYMPHOCYTES % 24.1 % (20.0-50.0); MEAN CORPUSCULAR HEMOGLOBIN 34.3 pg (28.0-32.0); MEAN CORPUSCULAR HGB CONC 34.3 g/dL (31.0-37.0); MEAN PLATELET VOLUME 9.5 fl (7.4-10.4); MONOCYTES % 7.7 % (2.0-8.0); NEUTROPHILS % 65.3 % (40.0-76.0); RED BLOOD CELL COUNT 3.33 mill/uL (4.2-5.4); RED CELL DISTRIBUTION WIDTH 15.3 % (11.6-14.6); WHITE BLOOD COUNT 5.2 x1000/uL (4.5-11.0)
[2023-08-02 02:05] LABS: CHLORIDE 102 mEq/L (98-107); POTASSIUM 3.6 mEq/L (3.5-5.1); SODIUM 130 mEq/L (136-145)
[2023-08-02 02:06] LABS: CARBON DIOXIDE 24 mEq/L (21-32)
[2023-08-02 02:11] LABS: CREATININE 0.8 mg/dL (0.6-1.0); GLUCOSE 332 mg/dL (70-105)
[2023-08-02 02:13] LABS: ALANINE AMINOTRANSFERASE 17 IU/L (10-49); ALBUMIN 3.3 g/dL (3.2-4.8); ASPARTATE AMINOTRANSFERASE 35 IU/L (<34); BILIRUBIN TOTAL 1.4 mg/dL (0.1-1.0); LACTIC ACID 2.5 mmol/L (0.4-2.0); PROTEIN TOTAL 6.9 g/dL (6.0-8.3)
[2023-08-02 02:30] LABS: UREA NITROGEN BLOOD < 5 mg/dL (9-23)
[2023-08-02 02:36] LABS: DIFFERENTIAL COMMENT 1
[2023-08-02 02:37] LABS: PLATELET 47 x1000/uL (130-400)
[2023-08-02] MEDS: HYDROCODONE/ACETAMINOPHEN 5/325MG TABLET PO ONE (03:13)
[2023-08-02] MEDS ORDERED: IBUP-2029 MT (04:17)
[2023-08-02] MEDS ORDERED: HYDR-4001 MT (04:17)
[2023-08-02 04:26] VITALS: BP 109/56; PULSE 81; RESP 16; TEMP 97.8
== END 2023-08-02 04:50 | disposition home or self-care (01) ==
LOC: ER 01:14
DX: S22.31XA Fracture of one rib, right side, initial encounter for closed fracture (principal); R56.9 Unspecified convulsions; E11.9 Type 2 diabetes mellitus without complications; F12.10 Cannabis abuse, uncomplicated; Z79.899 Other long term (current) drug therapy; X58.XXXA Exposure to other specified factors, initial encounter; Y93.89 Activity, other specified; Y92.89 Other specified places as the place of occurrence of the external cause; Y99.8 Other external cause status
CPT/HCPCS: 99285; 96365; 71045; 80053; 83605; 85025; 36415; 71101; 93005; J1953

== ENCOUNTER 2023-11-10 20:15 | Emergency (ER) | payer MEDICARE, MEDICAID ==
[~2023-11-10] VITALS: Ht 170.2 cm; Wt 67.0 kg
[~2023-11-10 20:15] MED LIST changes: +HYDR-4001 MT; +IBUP-2029 MT
[2023-11-10 20:24] VITALS: O2SAT 98
[2023-11-10] MEDS ORDERED: DOXY100C5 MT (20:36)
[2023-11-10 21:26] LABS: EOSINOPHILS % 2.7 % (0.0-5.0); HEMATOCRIT. 32.2 % (36.0-48.0); LYMPHOCYTES % 22.6 % (20.0-50.0); MEAN CORPUSCULAR HEMOGLOBIN 33.1 pg (28.0-32.0); MEAN CORPUSCULAR HGB CONC 34.1 g/dL (31.0-37.0); MEAN CORPUSCULAR VOLUME 97.1 fL (81.0-99.0); MONOCYTES % 7.2 % (2.0-8.0); NEUTROPHILS % 66.5 % (40.0-76.0); PLATELET 60 x1000/uL (130-400); RED BLOOD CELL COUNT 3.32 mill/uL (4.2-5.4); RED CELL DISTRIBUTION WIDTH 15.5 % (11.6-14.6); WHITE BLOOD COUNT 5.9 x1000/uL (4.5-11.0)
[2023-11-10 21:30] LABS: CHLORIDE 103 mEq/L (98-107); POTASSIUM 3.9 mEq/L (3.5-5.1); SODIUM 134 mEq/L (136-145)
[2023-11-10 21:31] LABS: CALCIUM 8.4 mg/dL (8.7-10.4); CARBON DIOXIDE 27 mEq/L (21-32)
[2023-11-10 21:36] LABS: CREATININE 0.9 mg/dL (0.6-1.0); GLUCOSE 228 mg/dL (70-105); UREA NITROGEN BLOOD 7 mg/dL (9-23)
[2023-11-10 21:38] LABS: ALANINE AMINOTRANSFERASE 13 IU/L (10-49); ALBUMIN 3.2 g/dL (3.2-4.8); ASPARTATE AMINOTRANSFERASE 24 IU/L (<34); BILIRUBIN TOTAL 1.6 mg/dL (0.1-1.0); PROTEIN TOTAL 6.7 g/dL (6.0-8.3)
[2023-11-10] MEDS ORDERED: TOPUD MT (22:12)
[2023-11-10] MEDS ORDERED: IBUP-2028 MT (22:12)
[2023-11-11 00:03] VITALS: BP 112/62; PULSE 82; RESP 16; TEMP 98.2
== END 2023-11-11 00:07 | disposition home or self-care (01) ==
LOC: ER 20:15
DX: E11.621 Type 2 diabetes mellitus with foot ulcer (principal); F12.10 Cannabis abuse, uncomplicated; R56.9 Unspecified convulsions; Z79.899 Other long term (current) drug therapy
CPT/HCPCS: 36415; 73630; 80053; 85025; 99284

== ENCOUNTER 2023-12-19 08:10 | Emergency (ER) | payer MEDICARE, MEDICAID ==
[~2023-12-19] VITALS: Ht 170.2 cm; Wt 63.0 kg
[~2023-12-19 08:10] MED LIST changes: +DOXY100C5 MT; +IBUP-2028 MT; +TOPUD MT
[2023-12-19 08:16] VITALS: BP 118/59; PULSE 84; RESP 20; TEMP 98.2; O2SAT 98
[2023-12-19] MEDS: IBUPROFEN 600MG TABLET PO ONE (08:55)
[2023-12-19] MEDS ORDERED: IBUP-2029 MT (10:22)
== END 2023-12-19 11:12 | disposition home or self-care (01) ==
LOC: ER 08:47
DX: S93.501A Unspecified sprain of right great toe, initial encounter (principal); F12.10 Cannabis abuse, uncomplicated; E11.9 Type 2 diabetes mellitus without complications; Z88.1 Allergy status to other antibiotic agents; Z79.899 Other long term (current) drug therapy; Z86.59 Personal history of other mental and behavioral disorders; W22.8XXA Striking against or struck by other objects, initial encounter; Y93.89 Activity, other specified; Y92.89 Other specified places as the place of occurrence of the external cause; Y99.8 Other external cause status
CPT/HCPCS: 73630; 99283